=== PATIENT | female | born 1985 | race Two or more races ===

== ENCOUNTER 2016-05-11 07:26 | Outpatient (CLI) ==
[2016-01-29 17:57] VITALS: BMI 21.7
[2016-05-11 07:47] LABS: BASOPHILS # (AUTO) 0.1 K/uL (0-0.2); BASOPHILS % (AUTO) 1.4 % (0.0-3.0); EOSINOPHILS # (AUTO) 0.2 K/ul (0.0-0.7); EOSINOPHILS % (AUTO) 4.3 % (0.0-7.0); HEMATOCRIT 39.1 % (37.0-47.0); HEMOGLOBIN 12.9 g/dl (12.0-16.0); LYMPHOCYTES # (AUTO) 1.7 K/uL (0.60-3.4); LYMPHOCYTES % (AUTO) 48.4 (10.0-50.0); MEAN CORPUSCULAR HEMOGLOBIN 29.8 pg (27.0-31.0); MEAN CORPUSCULAR VOLUME 90.3 fl (81.0-99.0); MONOCYTES # (AUTO) 0.3 K/uL (0.4-2.0); MONOCYTES % (AUTO) 9.2 (0-10); NEUTROPHILS # (AUTO) 1.3 K/ul (2.0-6.9); NEUTROPHILS % (AUTO) 36.7; PLATELET COUNT 297 10^3/uL (140-440); RED BLOOD COUNT 4.33 10^6/ul (4.20-5.40); WHITE BLOOD COUNT 3.47 K/ul (4.6-10.2)
[2016-05-11 08:07] LABS: H. PYLORI ANTIBODY NEGATIVE (NEGATIVE); H.PYLORI INTERNAL QC INTERNAL QC VALID
[2016-05-11 08:12] LABS: ALBUMIN 3.7 g/dL (3.4-5.0); ALBUMIN/GLOBULIN RATIO 1.23; BILIRUBIN,TOTAL 0.38 mg/dL (0.00-1.20); BUN/CREATININE RATIO 12.67; CALCIUM 8.8 mg/dL (8.2-10.2); CREATININE 0.71 mg/dL (0.60-1.30); TOTAL PROTEIN 6.7 g/dL (6.4-8.2)
--- NOTE | 2016-05-11 08:28 | US ---
EXAM: ULTRASOUND ABDOMEN LIMITED HISTORY: Nausea FINDINGS: Ultrasound abdomen, limited. Liver size measured 12 cm, normal. The liver parenchyma dem onstrated normal sonographic appearance without evidence of intrahepatic biliary dilatation or focal lesion. Patent and hepatopedal portal vein. A gallbladder is present. No evidence of gallbladder stones or sludge. Gallbladder wall thickness is normal at 0.22 centimeters and the common duct diameter is normal at 0.28 centimeters. The visualized portions of the pancreas appear unremarkable. IMPRESSION: Findings within normal limits.
== END 2016-05-11 07:27 | disposition home or self-care (01) ==
LOC: RAD 07:26
PROVIDERS: ATTEND Nurse Practitioner Family
DX: R11.0 Nausea (principal); R14.3 Flatulence; G47.30 Sleep apnea, unspecified; R10.84 Generalized abdominal pain
CPT/HCPCS: 36415; 80053; 82150; 83690; 85025; 86677

== ENCOUNTER 2016-05-20 15:36 | Outpatient (CLI) ==
[2016-01-29 17:57] VITALS: BMI 21.7
[2016-05-21 06:14] LABS: PROLACTIN 24.4 ng/mL (4.8-23.3)
[2016-05-21 07:52] LABS: FOLLICLE STIMULATING HORMONE 6.6 mIU/mL (.); LUTEINIZING HORMONE 6.2 mIU/mL (.); PROGESTERONE 1.8 ng/mL (.)
[2016-05-22 03:16] LABS: FREE TESTOSTERONE 0.7 pg/mL (0.0-4.2)
== END 2016-05-20 15:37 | disposition home or self-care (01) ==
LOC: LAB 15:36
PROVIDERS: ATTEND Nurse Practitioner Family
DX: R61 Generalized hyperhidrosis (principal)
CPT/HCPCS: 36415; 82672; 83001; 83002; 83970; 84144; 84146; 84402; 84439; 84443

== ENCOUNTER 2016-06-17 09:08 | Outpatient (CLI) ==
[2016-01-29 17:57] VITALS: BMI 21.7
--- NOTE | 2016-06-17 09:56 | US ---
EXAM: Right breast ultrasound. History: Right breast pain. Technique: Multiple sonographic images through the right breast were obtained. Color duplex Dopple r was used to interrogate vascular flow. Findings: No masses, cysts or fluid collections identified. Impression: No sonographic evidence of malignancy. Follow-up with ACR/ACS guidelines. BIRADS 2
== END 2016-06-17 09:09 | disposition home or self-care (01) ==
LOC: RAD 09:08
PROVIDERS: ATTEND Obstetrics & Gynecology
DX: N64.4 Mastodynia (principal)

== ENCOUNTER 2016-09-11 08:31 | Outpatient (CLI) ==
[2016-01-29 17:57] VITALS: BMI 21.7
== END 2016-09-11 08:32 | disposition home or self-care (01) ==
LOC: CAR 08:31
PROVIDERS: ATTEND Nurse Practitioner Family
DX: R09.02 Hypoxemia (principal)
CPT/HCPCS: 94761

== ENCOUNTER 2017-02-09 08:02 | Outpatient (CLI) ==
[2016-01-29 17:57] VITALS: BMI 21.7
--- NOTE | 2017-02-09 09:35 | CT ---
EXAM: CT sinuses without contrast HISTORY: Maxillary sinus pain for years, stuffy nose COMPARISON: None TECHNIQUE: CT sinuses performed without intravenous contrast. Coronal and sagittal reformatted imag es obtained. FINDINGS: Mastoid air cells clear. Temporal mandibular joints normally aligned. No fracture identi fied. Maxillary sinuses clear. Sphenoid sinuses clear. Frontal sinuses clear. Ethmoid air cells c lear. Mild mucosal thickening in the nasal cavity. There is a leftward projecting septal spur measu ring 5 mm. Mucoperiosteal thickening of the left ostiomeatal unit. No fluid levels in the paranasal sinuses. Globes and retrobulbar structures appear normal. IMPRESSION: Minimal nasal and sinus mucosal changes. No findings of acute sinusitis.
== END 2017-02-09 08:03 | disposition home or self-care (01) ==
LOC: RAD 08:02
PROVIDERS: ATTEND Nurse Practitioner Family
DX: R09.81 Nasal congestion (principal)

== ENCOUNTER 2017-03-06 18:16 | Emergency (ER) ==
[2017-03-06 18:24] VITALS: BP 134/81; TEMP 98.8; BMI 23.1
[2017-03-06] MEDS ORDERED: TORADOL IM STA (18:43)
[2017-03-06] MEDS ORDERED: DECADRON 4 MG/ML SDV IM STA (18:43)
[2017-03-06 18:57] LABS: URINE PREGNANCY INTERNAL QC INTERNAL QC VALID
--- NOTE | 2017-03-06 19:15 | CT ---
EXAM: CT head without contrast. HISTORY: Headache. PROCEDURE: Contiguous axial CT images of the head without contrast with coronal and sagittal reforma ts. FINDINGS: The ventricles and basal cisterns are normal in size and configuration. No evidence of ma ss or midline shift. No intracranial hemorrhage or evidence of large vessel infarct. No extra-axial fluid collection. There is minimal mucosal thickening in the paranasal sinuses. The mastoid air desmond ls are well-aerated. Impression: Negative CT head. Paranasal sinusitis.
--- NOTE | 2017-03-06 19:21 | ED.PDOC ---
General ED Provider: Dr. KATE LAROSE-ER Chief Complaint: Respiratory Complaint Stated Complaint: i think i have a sinus infection--i just finished augmentin Time Seen by Physician: 18:45 Mode of Arrival: Walk-In Information Source: Patient Exam Limitations: No limitations Primary Care Provider: SHAYLEE [facility] Nursing and Triage Documentation Reviewed and Agree: Yes Respiratory Complaint Exam - Respiratory Complaint/Exam Onset/Duration: 5 days Symptoms Are: Still present Timing: Constant Initial Severity: Mild Current Severity: Moderate Location: Nose Character: Reports: Non-productive cough Aggravating: Reports: URI Alleviating: Reports: Spontaneous resolution Associated Signs and Symptoms: Reports: Fever, URI, Nasal congestion, Sinus discomfort. Denies: Rapid breathing, Dyspnea, Chills, Chest pain, Pleuritic chest pain, Wheezing, Hemoptysis, Dizziness, Calf pain, Calf swelling, Edema, Hoarseness, Vomiting, Sore throat, Weight loss, Increased thirst, Increased appetite History of Healthcare-Acquired Pneumonia: No Pulmonary Embolism Risk Factors: None Pseudomonas Risk Factors: Reports: None Tuberculosis Risk Factors: Reports: None Status Asthmaticus Risk Factors: Reports: None Home Oxygen Use: No Recent Stress Test: No Recent Echo/LV Function: No Current Antibiotic Use: Yes Current Asthma Medication Use: No Respiratory Distress: None Inadequate Respiratory Effort: No Dysphagia Present: No Stridor Present: No JVD Present: No Accessory Muscle Use: No Retractions: Not Present Diminished Breath Sounds: No Sinus Tenderness: Maxillary, Ethmoid Grunting Respirations: No Kussmaul Respirations: No Differential Diagnoses: Sinusitis Review of Systems - Review Of Systems Constitutional: Reports: No symptoms Eyes: Reports: No symptoms Ears, Nose, Mouth, Throat: Reports: Nose discharge Respiratory: Reports: No symptoms Cardiac: Reports: No symptoms GI: Reports: No symptoms : Reports: No symptoms Musculoskeletal: Reports: No symptoms Skin: Reports: No symptoms Neurological: Reports: No symptoms Endocrine: Reports: No symptoms Hematologic/Lymphatic: Reports: No symptoms All Other Systems: Reviewed and Negative Past Medical History - Past Medical History Previously Healthy: Yes Endocrine: Reports: None Cardiovascular: Reports: None Respiratory: Reports: None Hematological: Reports: None Gastrointestinal: Reports: None Genitourinary: Reports: None Neuro/Psych: Reports: Migraine, Anxiety, Depression Musculoskeletal: Reports: None Cancer: Reports: None Last Menstrual Period: 02/19/17 Other Pertinent Past Medical History: MITRAL VALVE PROLAPSE, SLEEP APNEA, USES MACHINE AT HOME - Surgical History General Surgical History: Reports: Other (RIGHT OOPHERECTOMY, DUE TO TUBAL , D and C ), Unknown - Family History Family History: Reports: Unknown - Social History Smoking Status: Never smoker Hx Substance Use: No Alcohol Screening: Occasionally Physical Exam - Physical Exam Appearance: Well-appearing Pain Distress: Mild Eyes: KARRIE, EOMI, Conjunctiva clear ENT: Rhinorrhea Neck: Supple Respiratory: Airway patent Cardiovascular: RRR GI/: Soft, Nontender, No masses, Bowel sounds normal, No Organomegaly Musculoskeletal: Normal strength Skin: Warm, Dry, Normal color Neurological: Sensation intact, Motor intact, Reflexes intact, Cranial nerves intact, Alert, Oriented Psychiatric: Affect appropriate, Mood appropriate Interpretation - Radiology Interpretation Radiology Interpretation By: Radiologist Radiology Results: Positive Exam Interpreted: CT Scan Critical Care Note - Critical Care Note Total Time (mins): 0 Course - Course Orders, Labs, Meds: Lab Review 03/06/17 18:45 Urine Test Negative Orders Category Date Time Status URINE Stat LAB 03/06/17 18:45 Completed Dexamethasone 4 mg/ml Inj [Decadron 4 mg/ml Sdv] MEDS 03/06/17 18:43 Discontinued 4 mg IM ONCE STA Ketorolac Tromethamine [Toradol] MEDS 03/06/17 18:43 Discontinued 60 mg IM ONCE STA CT HEAD W/O CONTRAST Stat RADS 03/06/17 18:[address] SINUSES W/O CONTRAST Stat RADS 03/06/17 18:43 Taken Medications Discontinued Medications Generic Name Dose Route Start Last Admin Trade Name Grzegorzq PRN Reason Stop Dose Admin Dexamethasone Sodium Phosphate 4 mg 03/06/17 18:43 03/06/17 19:11 Decadron 4 Mg/Ml Sdv IM 03/06/17 18:44 4 mg ONCE STA Administration Ketorolac Tromethamine 60 mg 03/06/17 18:43 03/06/17 19:11 Toradol IM 03/06/17 18:44 60 mg ONCE STA Administration Vital Signs: Temp Pulse Resp BP Pulse Ox 03/06/17 18:16 98.8 F 83 16 134/81 99 Departure - Departure Time of Disposition: 19:21 Disposition: HOME SELF-CARE Discharge Problem: Sinusitis Qualifiers: Sinusitis location: unspecified location Chronicity: acute Recurrence: non- recurrent Qualified Code(s): J01.90 - Acute sinusitis, unspecified Instructions: Sinusitis (ED) Condition: Good Pt referred to PMD for follow-up: Yes Additional Instructions: biaxin 500mg bid x 14 days #28--flonase nasal spray one puff each nostril bid -- f/u wtih pcp Allergies/Adverse Reactions: Allergies No Known Drug Allergies Allergy (Verified 03/06/17 18:20) Disposition Discussed With: Patient, Family
--- NOTE | 2017-03-06 19:25 | CT ---
EXAM: CT sinuses without contrast HISTORY: Sinus pressure COMPARISON: 02/09/2017 TECHNIQUE: CT sinuses performed without intravenous contrast. Coronal and sagittal reformatted imag es obtained. FINDINGS: Mastoid air cells clear. Temporal mandibular joints normally aligned. No fracture identi fied. Globes and retrobulbar structures unremarkable. Maxillary sinuses clear. Mild mucosal thicke liang right sphenoid sinus. Minimal mucosal thickening ethmoid air cells. Frontal sinuses clear. Os tiomeatal units patent with mild mucoperiosteal thickening bilaterally. Mild leftward deviation nasa l septum with a leftward projecting spur measuring 5 mm. Mild mucosal thickening nasal cavity. No ai r-fluid levels paranasal sinuses. IMPRESSION: Mild sinus mucosal changes.
== END 2017-03-06 19:31 | disposition home or self-care (01) ==
LOC: ED 18:16
DX: J01.90 Acute sinusitis, unspecified (principal)
CPT/HCPCS: 81025; 96372; 99283

== ENCOUNTER 2017-09-14 19:21 | Emergency (ER) ==
[2017-09-14 19:26] VITALS: BP 117/81; TEMP 97.8; BMI 24.4
--- NOTE | 2017-09-14 19:39 | ED.PDOC ---
General ED Provider: Dr. KATE LAROSE-ER Chief Complaint: Extremity Pain/Injury Stated Complaint: my left hand, left wrist is numb and tingling up to the arm Time Seen by Physician: 19:37 Mode of Arrival: Walk-In Information Source: Patient Exam Limitations: No limitations [facility] and T[facility] Documentation Reviewed and Agree: Yes Does patient meet sepsis criteria?: No If yes, has appropriate treatment been initiated?: No System Inflammatory Response Syndrome: Not Applicable Sepsis Protocol: For patient's 13 years and over: Temp is 96.8 and below OR 101 and greater Pulse >90 BPM Resp >20/minute Acutely Altered Mental Status Are patient's symptoms suggestive of a new infection, such as: -Pneumonia -Skin, Soft Tissue -Endocarditis -UTI -Bone, Joint Infection -Implantable Device -Acute Abdominal Infection -Wound Infection -Meningitis -Blood Stream Catheter Infection -Unknown Musculoskeletal Complaint Exam - Upper Extremity Complaint/Exam Location of Pain: Reports: Left, Arm, Elbow Mechanism of Injury: Reports: No known trauma Onset/Duration: several mos Symptoms Are: Still present Timing: Constant Initial Severity: Mild Current Severity: Mild Location: Reports: Discrete Character: Reports: Dull, Burning Aggravating: Reports: None Alleviating: Reports: None Non-Orthopedic Risk Factors: Reports: None DVT Risk Factors: Reports: None Septic Arthritis Risk Factors: Reports: None Related Surgical History: Reports: None NV Bundle Intact Distal to Injury: Yes Compartment Syndrome Risk Factors: Present: Pain Differential Diagnoses: Other Review of Systems - Review Of Systems Constitutional: Reports: No symptoms Eyes: Reports: No symptoms Ears, Nose, Mouth, Throat: Reports: No symptoms Respiratory: Reports: No symptoms Cardiac: Reports: No symptoms GI: Reports: No symptoms : Reports: No symptoms Musculoskeletal: Reports: No symptoms Skin: Reports: No symptoms Neurological: Reports: Tingling Endocrine: Reports: No symptoms Hematologic/Lymphatic: Reports: No symptoms All Other Systems: Reviewed and Negative Past Medical History - Past Medical History Previously Healthy: Yes Endocrine: Reports: None Cardiovascular: Reports: None Respiratory: Reports: None Hematological: Reports: None Gastrointestinal: Reports: None Genitourinary: Reports: None Neuro/Psych: Reports: Migraine, Anxiety, Depression Musculoskeletal: Reports: None Cancer: Reports: None Last Menstrual Period: beginning august Other Pertinent Past Medical History: MITRAL VALVE PROLAPSE, SLEEP APNEA, USES MACHINE AT HOME - Surgical History General Surgical History: Reports: Other (RIGHT OOPHERECTOMY, DUE TO TUBAL , D and C ), Unknown - Family History Family History: Reports: Unknown - Social History Smoking Status: Never smoker Hx Substance Use: No Alcohol Screening: Occasionally - Immunizations Tetanus Shot up to Date: No Physical Exam - Physical Exam Appearance: Well-appearing Eyes: KARRIE ENT: Ears normal, Nose normal, Oropharynx normal Neck: Supple Respiratory: Airway patent, Breath sounds clear, Breath sounds equal, Respirations nonlabored Cardiovascular: RRR GI/: Soft Musculoskeletal: Normal strength, ROM intact, No edema, No calf tenderness Skin: Warm, Dry, Normal color Neurological: Motor intact (noted phelans and tinels sign is positive), Alert, Oriented Psychiatric: Affect appropriate, Mood appropriate Critical Care Note - Critical Care Note Total Time (mins): 0 Course - Course Vital Signs: Temp Pulse Resp BP Pulse Ox 09/14/17 19:22 97.8 F 83 16 117/81 98 Departure - Departure Time of Disposition: 19:40 Disposition: HOME SELF-CARE Discharge Problem: Carpal tunnel syndrome Qualifiers: Laterality: left Qualified Code(s): G56.02 - Carpal tunnel syndrome, left upper limb Instructions: Paresthesia (ED) Condition: Good Pt referred to PMD for follow-up: No IPMP verified?: No Additional Instructions: medrol dose pack---f/u with clinic for NCV and EMG to be scheduled Allergies/Adverse Reactions: Allergies No Known Drug Allergies Allergy (Verified 09/14/17 19:28) Disposition Discussed With: Patient, Family
== END 2017-09-14 19:46 | disposition home or self-care (01) ==
LOC: ED 19:21
DX: G56.02 Carpal tunnel syndrome, left upper limb (principal)
CPT/HCPCS: 99282

== ENCOUNTER 2017-09-20 10:30 | Outpatient (CLI) | END 2017-09-20 10:31 | disposition home or self-care (01) | LOC: RHC-LAB 10:30 | PROVIDERS: ATTEND Nurse Practitioner Family | DX: Z00.00 Encounter for general adult medical examination without abnormal findings (principal) | CPT/HCPCS: 36415; 80053; 80061; 84443; 85025 ==

== ENCOUNTER 2017-09-22 18:49 | Emergency (ER) ==
[2017-09-22 18:59] VITALS: BP 110/76; TEMP 97.5; BMI 23.8
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
== END 2017-09-22 19:14 | disposition home or self-care (01) ==
LOC: ED 18:49
DX: K04.7 Periapical abscess without sinus (principal)
CPT/HCPCS: 99282

== ENCOUNTER 2017-10-28 14:09 | Outpatient (CLI) ==
--- NOTE | 2017-10-28 14:44 | DI ---
EXAM: Two views of the right ribs. History: Upper right anterior rib pain. Comparison: Chest radiograph 01/01/2015 Findings: The right lung is free of consolidation. No right pleural effusion and no right pneumotho rax. No acute displaced right-sided rib fractures. Impression: Unremarkable right rib series
== END 2017-10-28 14:10 ==
LOC: RAD 14:09
PROVIDERS: ATTEND Nurse Practitioner Family
DX: R07.81 Pleurodynia (principal); Y63.3 Inadvertent exposure of patient to radiation during medical care
CPT/HCPCS: 36415; 82565

== ENCOUNTER 2018-03-18 | Outpatient (CLI) | END 2018-03-18 08:52 | disposition home or self-care (01) | DX: R10.13 Epigastric pain (principal) ==

== ENCOUNTER 2018-07-08 12:24 | Outpatient (CLI) ==
[2018-03-09 16:30] VITALS: BMI 24.5
--- NOTE | 2018-07-08 14:51 | DI ---
EXAM: Temporomandibular joints six views HISTORY: Temporomandibular joint pain FINDINGS / IMPRESSION: The temporal mandibular joints proper are poorly seen in part secondary to s uperimposition of the mastoid processes. The joint excursion appears grossly normal and symmetric bi laterally. There is no well-defined fracture. If concern is persistent, consider correlation with M RI.
== END 2018-07-08 12:25 | disposition home or self-care (01) ==
LOC: RAD 12:24
PROVIDERS: ATTEND Nurse Practitioner Family
DX: R68.84 Jaw pain (principal)

== ENCOUNTER 2018-08-31 18:28 | Emergency (ER) ==
[2018-08-31 18:36] VITALS: BP 106/68; TEMP 98.9; BMI 25.0
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
== END 2018-08-31 19:02 | disposition home or self-care (01) ==
LOC: ED 18:28
DX: H66.90 Otitis media, unspecified, unspecified ear (principal)
CPT/HCPCS: 99282

== ENCOUNTER 2018-11-11 14:52 | Outpatient (CLI) | END 2018-11-11 14:53 | disposition home or self-care (01) | LOC: CAR 14:52 | PROVIDERS: ATTEND Nurse Practitioner Family | DX: R00.2 Palpitations (principal) | CPT/HCPCS: 93005; 93010 ==